=== PATIENT | female | born 1995 | race Caucasian/White ===

== ENCOUNTER 2021-04-15 19:53 | Outpatient (CLI) | payer OTHER ==
[~2021-04-15] VITALS: Ht 175.3 cm; Wt 74.7 kg
[2021-04-15 20:17] VITALS: BP 98/56
[2021-04-15] MEDS ORDERED: PRENTAB9 PO ×2 (20:55)
[2021-04-15] MEDS ORDERED: PEPC1TAB5 PO (20:55)
[2021-04-15] MEDS ORDERED: ZYRTTAB8 PO (20:55)
[2021-04-19] MEDS ORDERED: DOCU100C16 PO (06:53)
[2021-04-19] MEDS ORDERED: IBUP-1022 PO (06:53)
[2021-04-19] MEDS ORDERED: PRENCHW PO (06:53)
== END 2021-04-15 21:41 | disposition home or self-care (01) ==
LOC: M LDO 19:53
PROVIDERS: ATTEND Obstetrics & Gynecology
DX: O60.03 Preterm labor without delivery, third trimester (principal); O26.893 Other specified pregnancy related conditions, third trimester; N89.8 Other specified noninflammatory disorders of vagina; Z3A.38 38 weeks gestation of pregnancy
CPT/HCPCS: 59025; G0378; G0463

== ENCOUNTER 2021-04-17 08:44 | Outpatient (CLI) | payer OTHER ==
[~2021-04-17] VITALS: Ht 175.3 cm; Wt 74.0 kg
[~2021-04-17 08:44] MED LIST: PEPC1TAB5 PO; PRENTAB9 PO; ZYRTTAB8 PO
[2021-04-17 09:00] VITALS: BP 108/67
[2021-04-17] MEDS ORDERED: HOME MED LIST COMPLETE! XX SCH (09:05)
[2021-04-19] MEDS ORDERED: PRENCHW PO (06:53)
[2021-04-19] MEDS ORDERED: IBUP-1022 PO (06:53)
[2021-04-19] MEDS ORDERED: DOCU100C16 PO (06:53)
== END 2021-04-17 09:56 | disposition home or self-care (01) ==
LOC: M LDO 08:44
PROVIDERS: ATTEND Obstetrics & Gynecology
DX: O60.03 Preterm labor without delivery, third trimester (principal); Z3A.39 39 weeks gestation of pregnancy; Z82.79 Family history of other congenital malformations, deformations and chromosomal abnormalities
CPT/HCPCS: 59025; G0378; G0463

== ENCOUNTER → 2022-06-21 | Outpatient (CLI) | payer OTHER ==
[~2022-06-21] MED LIST changes: +DOCU100C16 PO; +GASTROGRAFIN SOLUTION 30ML As Ordered ONE; +IBUP-1022 PO; +ISOVUE-370 76% 100ML VIAL As Ordered ONE; +PRENCHW PO
== END ==
LOC: M RAD 12:30
PROVIDERS: ATTEND Student in an Organized Health Care Education/Training Program
DX: R19.02 Left upper quadrant abdominal swelling, mass and lump (principal); R16.1 Splenomegaly, not elsewhere classified; R93.3 Abnormal findings on diagnostic imaging of other parts of digestive tract; D73.89 Other diseases of spleen